=== PATIENT | male | born 1965 | race Caucasian/White ===

== ENCOUNTER 2017-04-25 05:25 | Day surgery (SDC) | payer BC ==
[~2017-04-25] VITALS: Ht 162.6 cm; Wt 72.0 kg
[2017-04-25] VITALS (12 sets, daily range): BP systolic 115–149; BP diastolic 76–95; PULSE 58–82; RESP 12–18; Ht 162.6 cm; Wt 72.0 kg
[2017-04-25 06:47] LABS: CALCIUM 9.4 mg/dl (8.4-10.2); CREATININE 0.93 mg/dl (0.61-1.24); POTASSIUM 3.9 mmol/L (3.5-5.1)
[2017-04-25 06:50] LABS: BASOPHIL # 0.1 10^3/ul (0.0-0.1); BASOPHILS % 0.7 % (0.0-2.0); EOSINOPHILS # 0.2 10^3/ul (0.0-0.5); EOSINOPHILS % 1.9 % (0.0-7.0); HEMATOCRIT 45.1 % (42.0-52.0); HEMOGLOBIN 15.6 g/dl (14.0-18.0); LYMPHOCYTES # 2.6 10^3/ul (0.8-2.9); LYMPHOCYTES % 25.9 % (15.0-51.0); MEAN CORPUSCULAR HEMOGLOBIN 31.1 pg (29.0-33.0); MEAN CORPUSCULAR HGB CONC 34.6 g/dl (32.0-37.0); MEAN PLATELET VOLUME 10.9 fl (7.4-10.4); MONOCYTE # 0.8 10^3/ul (0.3-0.9); MONOCYTES % 7.7 % (0.0-11.0); NEUTROPHIL # 6.3 10^3/ul (1.6-7.5); NEUTROPHILS % 63.3 % (39.0-77.0); PLATELET COUNT 288 10^3/UL (140-415); RED BLOOD COUNT 5.01 10^6/ul (4.70-6.10); RED CELL DISTRIBUTION WIDTH 12.6 % (11.5-14.5)
[2017-04-25 06:52] LABS: INR 0.94; PARTIAL THROMBOPLASTIN TIME 29.2 Sec (25.0-35.0); PROTIME 12.7 Sec (11.9-14.9)
[2017-04-25] MEDS ORDERED: POLYMYXIN/BACITRACIN 1L IRRIG ONE (07:20)
[2017-04-25] MEDS ORDERED: BUPIVACAINE 0.25% (MPF) 30 ML INJ ONE (07:20)
[2017-04-25] MEDS ORDERED: MIDAZOLAM 1 MG/ML 2 ML INJ ONE (07:49)
[2017-04-25] MEDS ORDERED: ROCURONIUM 50 MG INJ ONE (08:44)
[2017-04-25] MEDS ORDERED: NEOSTIGMINE 3 MG/3 ML SYRINGE ONE (08:44)
[2017-04-25] MEDS ORDERED: GLYCOPYRROLATE 0.4 MG INJ ONE (08:44)
[2017-04-25] MEDS ORDERED: LIDOCAINE 2% (SDV) 5 ML INJ ONE (08:44)
[2017-04-25] MEDS ORDERED: PROPOFOL 20 ML ONE (08:44)
[2017-04-25] MEDS ORDERED: ONDANSETRON 4 MG INJ ONE ×2 (08:45→09:11)
--- NOTE | 2017-04-25 08:47 | OPR ---
Date/Time of Note Date/Time of Note DATE: 04/25/17 TIME: 08:43 Operative Report Procedure Date: Apr 25, 2017 Preoperative Diagnosis incarcerated left inguinal hernia Postoperative Diagnosis same Operation/Procedure Performed 1. open left incarcerated inguinal hernia repair with large ultrapro hernia system mesh 2. therapeutic injection of subcutaneous local anesthesia Surgeon see signature line Multimedia Services Manager none Anesthesia Type: general Estimated Blood Loss: 0 - 10 ml's Transfusion none Specimen none Grafts/Implants none Complications none Pt Condition Post Procedure: stable Indications This is a 52-year-old male with incarcerated left inguinal hernia. He requests surgical repair. Risks alternatives benefits and percent were discussed the patient. Patient expresses understanding and consents to the operation. Procedure Description Patient is taken to the OR and prepped and draped in usual sterile fashion. Surgical timeout was performed. IV antibiotics were given. 10 blade is used to make a left inguinal oblique incision. Dissection Carrs carried onto the extremity fascia. The external oblique fascia is open with a 15 blade. This incision is extended medially inferiorly lateral superiorly with Metzenbaum scissors. Cord structure identified. Cord structures are encircled with a Ernestina drain. Incarcerated indirect hernia is identified and manually reduced. This defect is supported with the distal portion of the ultrapure hernia system mesh. The disc is secured in place with a running 0 Prolene from the pubic tubercle along the shelving of the inguinal ligament. Superiorly the disc is secured to the intra-bleed with interrupted 3-0 Vicryl. Onlay mesh is secured in a similar fashion with a running 0 Prolene from the pubic tubercle along the shelving edge the inguinal ligament. Structure creating reapproximated around the cord structures to re-create the inguinal ring with interrupted 0 Prolene. The onlay mesh is secured to intra-bleed with interrupted 3-0 Vicryl. External the fascia is closed with running 3-0 Vicryl. Derick's fascia is closed interrupted 3-0 Vicryl. Skin is closed using absorbable skin staplers. Therapeutic subcutaneous local anesthesia was injected throughout the incision site. Dressings were applied. Estefania ORTA Apr 25, 2017 08:46
[2017-04-25] MEDS ORDERED: CEFAZOLIN 1 GM INJ ONE (08:49)
[2017-04-25] MEDS ORDERED: DIPHENHYDRAMINE 50 MG INJ IV PRN (09:00)
[2017-04-25] MEDS ORDERED: HYDROCODONE/APAP (5/325) TAB PO ONE (09:00)
[2017-04-25] MEDS ORDERED: ONDANSETRON 4 MG INJ IV PRN (09:00)
[2017-04-25] MEDS ORDERED: CEFAZOLIN 1 GM/50 ML (PMX) 50 ML IVPB SCH (09:00)
[2017-04-25] MEDS ORDERED: HYDROmorphONE (0.2 MG/ML) 10ML SYG IV PRN ×2 (09:00)
[2017-04-25] MEDS ORDERED: MEPERIDINE 25 MG INJ IV PRN (09:00)
[2017-04-25] MEDS ORDERED: METOCLOPRAMIDE 10 MG INJ IV PRN (09:00)
[2017-04-25] MEDS ORDERED: SOD CHLORIDE 0.9% 1,000 ML IV SCH (09:00)
[2017-04-25] MEDS ORDERED: FENTAnyl 50 MCG/ML VIAL IV PRN ×2 (09:00)
[2017-04-25] MEDS ORDERED: MEPERIDINE 25 MG INJ ONE (09:11)
[2017-04-25] MEDS ORDERED: HYDROmorphONE (0.2 MG/ML) 10ML SYG IV ONE (09:11)
== END 2017-04-25 13:15 | disposition home or self-care (01) ==
LOC: SDS 05:25
PROVIDERS: ATTEND Surgery
DX: K40.30 Unilateral inguinal hernia, with obstruction, without gangrene, not specified as recurrent (principal)
CPT/HCPCS: 49507; 80048; 85025; 85610; 85730; C1781; J0690; J1170; J2175; J2250; J2405; J3010; J2710